=== PATIENT | female | born 1985 | race African-American/Black ===

== ENCOUNTER 2017-10-16 19:13 | Emergency (ER) | payer BC ==
[~2017-10-16] VITALS: Ht 160 cm; Wt 83.2 kg
[2017-10-16 19:20] VITALS: Ht 160 cm; Wt 83.2 kg
--- NOTE | 2017-10-16 20:37 | ERD ---
ER Documentation Chief Complaint Chief Complaint on/off L sided CP,mostly breast area, since Wednesday, all day today HPI Patient is a 31-year-old female with no past medical history presents ED for concerns of left-sided chest pain which is episodic in nature for the last 4 days. Patient states that the pain became constant today. Patient describes the pain to be in her left chest, nonradiating. Patient states pain is worse with lying down. Patient describes the pain to be worse with deep inspiration. Patient states she does have some shortness of breath. Patient states earlier today she also had some palpitations which resolved after 2-3 minutes. Patient denies any nausea, vomiting, leg pain, leg swelling or loss consciousness. Patient does admit to OCP use as well as a recent air travel last month. Patient denies any surgeries. Patient denies any history of cardiac disease in her family. Patient denies any previous history of DVT or PE. ROS All systems reviewed and are negative except as per history of present illness. Medications Home Meds Active Scripts Ibuprofen* (Motrin*) 600 Mg Tab, 600 MG PO Q6, #30 TAB Prov:JEANNETTE WILSON PA-C 10/17/17 Allergies Allergies: Coded Allergies: No Known Allergy (Unverified , 10/16/17) PMhx/Soc Medical and Surgical Hx: pt denies Medical Hx, pt denies Surgical Hx Hx Alcohol Use: No Hx Substance Use: No Hx Tobacco Use: No Smoking Status: Never smoker Physical Exam Vitals Vital Signs Date Time Temp Pulse Resp B/P Pulse Ox O2 Delivery O2 Flow Rate FiO2 10/16/17 19:20 98.0 78 18 120/72 98 Physical Exam GENERAL: Well-developed, well-nourished female. Appears in no acute distress. Speaking in full sentences. HEAD: Normocephalic, atraumatic. EYES: Pupils are equally reactive bilaterally. EOMs grossly intact. No conjunctival erythema. ENT: Moist mucous membranes. No uvula deviation. No kissing tonsils. NECK: Supple. No meningismus. Normal range of motion of the neck. LUNG: Clear to auscultation bilaterally. No rhonchi, wheezing, rales or coarse breath sounds. HEART: Regular rate and rhythm. No murmurs, rubs or gallops. EXTREMITIES: Equal pulses bilaterally. No peripheral clubbing, cyanosis or edema. No unilateral leg swelling. No palpable cords in the lower extremities. No pain with dorsiflexion noted. NEUROLOGIC: Alert and oriented. Moving all four extremities without any difficulty. Normal speech. Steady gait. SKIN: Normal color. Warm and dry. No rashes or lesions. Result Diagram: 10/16/17205110/16/172051 Results 24 hrs Laboratory Tests Test 10/16/17 20:52 10/16/17 22:10 White Blood Count 10.210^3/ul Red Blood Count 4.5410^6/ul Hemoglobin 12.6g/dl Hematocrit 39.3% Mean Corpuscular Volume 86.6fl Mean Corpuscular Hemoglobin 27.8pg Mean Corpuscular Hemoglobin Concent 32.1g/dl Red Cell Distribution Width 13.2% Platelet Count 39166^3/UL Mean Platelet Volume 12.2fl Neutrophils % 66.3% Lymphocytes % 26.3% Monocytes % 5.3% Eosinophils % 1.3% Basophils % 0.5% Nucleated Red Blood Cells % 0.0/100WBC Neutrophils # 6.810^3/ul Lymphocytes # 2.710^3/ul Monocytes # 0.510^3/ul Eosinophils # 0.110^3/ul Basophils # 0.110^3/ul Nucleated Red Blood Cells # 0.010^3/ul Prothrombin Time 13.5Sec Prothrombin Time Ratio 1.1 INR International Normalized Ratio 1.03 Activated Partial Thromboplast Time 29.5Sec D-Dimer 229.00ng/ml D-Dimer Comment Sodium Level 141mmol/L Potassium Level 3.8mmol/L Chloride Level 99mmol/L Carbon Dioxide Level 30mmol/L Anion Gap 16 Blood Urea Nitrogen 18mg/dl Creatinine 1.03mg/dl Glucose Level 76mg/dl Calcium Level 9.1mg/dl Troponin I < 0.012ng/ml Current Medications Medications (Trade) Dose Ordered Sig/Shaheed Route PRN Reason Start Time Stop Time Status Last Admin Dose Admin Ketorolac Tromethamine (Toradol) 30 mg ONCE STAT IV 10/16/17 23:33 10/16/17 23:34 DC 10/16/17 23:47 Procedures/MDM ED COURSE: The patient was stable throughout ED course. I kept the patient and/or family informed of laboratory and diagnostic imaging results throughout the ED course. EKG: Read by Dr. Qiu, attending physician. EKG shows normal sinus rhythm at a rate of 73 bpm Possible left atrial enlargement noted. No arrhythmias or acute ST elevations. DIAGNOSTIC IMAGING: Read by radiologist. Patient: AFSHAN LOUIS : 1985 Age: 31 Sex: F MR #: [id number] DOS: 10/16/172019 Ordering MD: JEANNETTE WILSON PA-C Location: [facility] Room/Bed: PROCEDURE: XR Chest. CLINICAL INDICATION: Chest pain TECHNIQUE: Single frontal view of the chest. COMPARISON: None. FINDINGS: The cardiomediastinal silhouette is within normal limits. The lungs are clear. No signs of pleural fluid or pneumothorax are seen. The osseous structures and soft tissues are unremarkable. IMPRESSION: No evidence for active cardiopulmonary disease. RPTAT: [facility] Physician Edward Date Time Electronically viewed and signed by Physician Edward on 10/16/2017 21:36 RS/ CC: JEANNETTE WILSON PA-C MEDICATIONS GIVEN: Toradol Patient tolerated medication well with no adverse reactions. MEDICAL DECISION MAKING: This is a 31-year-old female presents to the ED for concerns of intermittent left-sided chest pain for last 4 days which became constant today. If the pain is worse with deep inspiration. Patient denied any leg swelling or recent surgeries. Patient did admit to recent air travel and OCP use.. Vital signs were reviewed. Patient was afebrile. Patient was not hypoxic. Cardiac exam was normal. Lung exam was normal. This case with my supervising physician Dr. Puri who advised me to order blood work including a d-dimer on the patient given her PE risk factors of recent air travel and OCP use. CBC showed no evidence of systemic infection or severe anemia. CMP showed no evidence of electrolyte abnormalities, severe acidosis, alkalosis, renal failure , or liver disease. Patient did have a slight elevation of her creatinine which is noted to be 1.03. Patient was advised to follow-up with PCP for repeat testing and drink plenty of fluids. Troponin was negative. D-dimer was negative. HEART score was 0. EKG was within normal limits. Chest x-ray was unremarkable. At this time for the patient's presentation is most consistent with chest pain of unknown etiology. Low suspicion for acute coronary syndrome, arrhythmia, pericarditis, PE, pneumothorax, pneumonia or pleural effusion. PRESCRIPTIONS: Ibuprofen DISCHARGE: At this time, patient is stable for discharge and outpatient management. Patient was given a copy of all imaging studies and blood work obtained today. Patient advised to follow-up with primary care physician as well as a general freight agent for further management of her chest pain.. Referral information provided. I have instructed the patient to follow-up with his/her primary care physician in 1-2 days. If symptoms persist, patient may need to see a specialist for further examinations and testing. I have instructed the patient to promptly return to the ER at any time for any new or worsening symptoms including increased increased pain, fever, nausea, vomiting, numbness, weakness , diaphoresis or LOC. The patient and/or family expressed understanding of and agreement with this plan. All questions were answered. Home care instructions were provided. Disclaimer: Inadvertent spelling and grammatical errors are likely due to EHR/ dictation software use and do not reflect on the overall quality of patient care. Also, please note that the electronic time recorded on this note does not necessarily reflect the actual time of the patient encounter. Departure Diagnosis: Primary Impression: Chest pain Chest pain type: unspecified Qualified Code: R07.9 - Chest pain, unspecified type Condition: Stable Patient Instructions: Chest Pain, Uncertain Cause Referrals: [facility] YOU HAVE RECEIVED A MEDICAL SCREENING EXAM AND THE RESULTS INDICATE THAT YOU DO NOT HAVE A CONDITION THAT REQUIRES URGENT TREATMENT IN THE EMERGENCY DEPARTMENT. FURTHER EVALUATION AND TREATMENT OF YOUR CONDITION CAN WAIT UNTIL YOU ARE SEEN IN YOUR DOCTORS OFFICE WITHIN THE NEXT 1-2 DAYS. IT IS YOUR RESPONSIBILITY TO MAKE AN APPOINTMENT FOR FOLOW-UP CARE. IF YOU HAVE A PRIMARY DOCTOR --you should call your primary doctor and schedule an appointment IF YOU DO NOT HAVE A PRIMARY DOCTOR YOU CAN CALL OUR PHYSICIAN REFERRAL HOTLINE AT IF YOU CAN NOT AFFORD TO SEE A PHYSICIAN YOU CAN CHOSE FROM THE FOLLOWING [facility] [address] [facility]. [facility] [address] [facility] [facility] [address] [facility] [facility] [address] [facility] [facility] [address] [facility]. [facility] [address] [facility]. [facility] YOU HAVE RECEIVED A MEDICAL SCREENING EXAM AND THE RESULTS INDICATE THAT YOU DO NOT HAVE A CONDITION THAT REQUIRES URGENT TREATMENT IN THE EMERGENCY DEPARTMENT. FURTHER EVALUATION AND TREATMENT OF YOUR CONDITION CAN WAIT UNTIL YOU ARE SEEN IN YOUR DOCTORS OFFICE WITHIN THE NEXT 1-2 DAYS. IT IS YOUR RESPONSIBILITY TO MAKE AN APPOINTMENT FOR FOLOW-UP CARE. IF YOU HAVE A PRIMARY DOCTOR --you should call your primary doctor and schedule and appointment IF YOU DO NOT HAVE A PRIMARY DOCTOR YOU CAN CALL OUR PHYSICIAN REFERRAL HOTLINE AT . IF YOU CAN NOT AFFORD TO SEE A PHYSICIAN YOU CAN CHOSE FROM THE FOLLOWING [facility] INSTITUTIONS: [facility] [address] [place] [address] [facility] [address] [place] [address] [facility] [address] [place] [address] Additional Instructions: Call your primary care doctor TOMORROW for an appointment during the next 1-2 days.See the doctor sooner or return here if your condition worsens before your appointment time. Follow up with general freight agent for further testing. JEANNETTE WILSON PA-C Oct 16, 2017 20:37
[2017-10-16 21:21] LABS: BASOPHIL # 0.1 10^3/ul (0.0-0.1); BASOPHILS % 0.5 % (0.0-2.0); EOSINOPHILS # 0.1 10^3/ul (0.0-0.5); EOSINOPHILS % 1.3 % (0.0-7.0); HEMATOCRIT 39.3 % (37.0-47.0); HEMOGLOBIN 12.6 g/dl (12.0-16.0); LYMPHOCYTES # 2.7 10^3/ul (0.8-2.9); LYMPHOCYTES % 26.3 % (15.0-51.0); MEAN CORPUSCULAR HEMOGLOBIN 27.8 pg (29.0-33.0); MEAN CORPUSCULAR HGB CONC 32.1 g/dl (32.0-37.0); MEAN CORPUSCULAR VOLUME 86.6 fl (82.0-101.0); MEAN PLATELET VOLUME 12.2 fl (7.4-10.4); MONOCYTE # 0.5 10^3/ul (0.3-0.9); MONOCYTES % 5.3 % (0.0-11.0); NEUTROPHIL # 6.8 10^3/ul (1.6-7.5); NEUTROPHILS % 66.3 % (39.0-77.0); PLATELET COUNT 306 10^3/UL (140-415); RED BLOOD COUNT 4.54 10^6/ul (4.20-5.40); RED CELL DISTRIBUTION WIDTH 13.2 % (11.5-14.5); WHITE BLOOD COUNT 10.2 10^3/ul (4.8-10.8)
--- NOTE | 2017-10-16 21:36 | RADRPT ---
PROCEDURE: XR Chest. CLINICAL INDICATION: Chest pain TECHNIQUE: Single frontal view of the chest. COMPARISON: None. FINDINGS: The cardiomediastinal silhouette is within normal limits. The lungs are clear. No signs of pleural f luid or pneumothorax are seen. The osseous structures and soft tissues are unremarkable. IMPRESSION: No evidence for active cardiopulmonary disease. RPTAT: [facility] Physician Edward Date Time Electronically viewed and signed by Physician Edward on 10/16/2017 21:36 RS/
[2017-10-16 21:42] LABS: CALCIUM 9.1 mg/dl (8.4-10.2); CREATININE 1.03 mg/dl (0.44-1.00); POTASSIUM 3.8 mmol/L (3.5-5.1)
[2017-10-16 23:17] LABS: INR 1.03; PROTIME 13.5 Sec (12.2-14.2); PT RATIO 1.1
[2017-10-16] MEDS ORDERED: KETOROLAC 30 MG INJ IV STA (23:33)
[2017-10-16 23:40] LABS: PARTIAL THROMBOPLASTIN TIME 29.5 Sec (25.0-35.0)
[2017-10-17] MEDS ORDERED: IBUP-1542 PO (00:25)
[2017-10-17 00:41] VITALS: BP 127/84; PULSE 78; RESP 16
== END 2017-10-17 00:42 | disposition home or self-care (01) ==
LOC: FTE 19:13
DX: R07.9 Chest pain, unspecified (principal)
CPT/HCPCS: 71010; 80048; 84484; 85025; 85378; 85610; 85730; 93005; 96374; 99285; J1885